=== PATIENT | male | born 1960 | race Hispanic/Latino ===

== ENCOUNTER 2021-04-17 14:05 | Inpatient (IN) | payer OTHER ==
[~2021-04-17] VITALS: Ht 167.6 cm; Wt 84.8 kg
[2021-04-17 15:30] VITALS: BP 156/79
[2021-04-17] MEDS ORDERED: SODIUM BICARB 50MEQ 50ML VIAL 50 ML ONE (16:34)
[2021-04-17] MEDS ORDERED: FENTANYL CITRATE PF 50 MCG/1 ML 2ML VIAL ONE (16:34)
[2021-04-17] MEDS ORDERED: IOHEXOL-350 75 ML VIAL IV ONE (16:34)
[2021-04-17] MEDS ORDERED: BIVALIRUDIN 250 MG/VIAL IV ONE (16:34)
[2021-04-17] MEDS ORDERED: LIDOCAINE HCL 400MG/20ML VIAL ONE (16:34)
[2021-04-17] MEDS ORDERED: MIDAZOLAM HCL 1 MG/ML 2ML VIAL ONE (16:34)
[2021-04-17] MEDS ORDERED: IOHEXOL-350 50ML VIAL IV ONE (16:34)
[2021-04-17] MEDS ORDERED: LABETALOL 20MG SYG IV ONE (17:20)
[2021-04-17] MEDS ORDERED: HYDR25TA PO (17:55)
[2021-04-17] MEDS ORDERED: GLIM4TAB36 PO (17:55)
[2021-04-17] MEDS ORDERED: LOSA25TA41 PO (17:55)
[2021-04-17] MEDS ORDERED: PRAV20TA4 PO (17:55)
[2021-04-17] MEDS ORDERED: AMLO-258 PO (17:55)
[2021-04-17] MEDS ORDERED: AEC81 PO (17:55)
[2021-04-17] MEDS ORDERED: CARV12.511 PO (17:55)
[2021-04-17] MEDS ORDERED: FINA5TAB41 PO (17:55)
[2021-04-17] MEDS ORDERED: METF-446 PO (17:55)
[2021-04-17] MEDS ORDERED: 0.9%NACL 1000ML 1,000 ML IV SCH (18:00)
[2021-04-17 19:00] VITALS: BP 139/73
[2021-04-17 19:30] VITALS: BP 131/56
[2021-04-17 20:00] VITALS: BP 146/72
[2021-04-17] MEDS ORDERED: ACETAMINOPHEN 325 MG TAB PO PRN (20:00)
[2021-04-17] MEDS: ISOSORBIDE MONO 30MG SR TAB PO SCH (20:44)
[2021-04-17] MEDS: ATORVASTATIN 40 MG TABLET PO SCH (20:44)
[2021-04-17 21:00] VITALS: BP 129/67
[2021-04-17 22:00] VITALS: BP 137/70
[2021-04-17] MEDS ORDERED: INSULIN HUMULIN R 100 UNIT/ML 3ML ONE (22:13)
[2021-04-18] VITALS: BP 137/66
[2021-04-18 04:00] VITALS: BP_SYST 129; BP_SYST 133; BP_DIAS 68; BP_DIAS 82
[2021-04-18 05:05] LABS: HEMATOCRIT 26.1 % (42-54); MEAN CORPUSCULAR HEMOGLOBIN 23.2 pg (27.0-33.0); MEAN CORPUSCULAR HGB CONC 31.4 g/dL (32.0-36.0); MEAN CORPUSCULAR VOLUME 73.9 fL (79-99); PLATELET COUNT (AUTO) 584 K/uL (130-400); RED BLOOD CELL COUNT(AUTO) 3.53 MIL/uL (4.50-6.20); RED CELL DISTRIBUTION WIDTH 15.9 % (11.0-15.5); WHITE BLOOD COUNT (AUTO) 13.1 K/uL (4.8-10.8)
[2021-04-18 05:22] LABS: CREATININE 2.2 mg/dL (0.5-1.5); POTASSIUM 3.6 mmol/L (3.5-5.1)
[2021-04-18 05:25] LABS: HEMOGLOBIN A1C 8.7 % (4.0-6.0)
[2021-04-18] MEDS: INSULIN HUMULIN R 100 UNIT/ML 3ML SQ SCH ×4 (06:38→21:00)
[2021-04-18] MEDS ORDERED: INSULIN HUMULIN R 100 UNIT/ML 3ML SQ SCH (07:30)
[2021-04-18 08:00] VITALS: BP 149/67
[2021-04-18] MEDS: ASPIRIN 81MG CHEW TAB PO SCH (08:44)
[2021-04-18] MEDS: CLOPIDOGREL 75MG TAB PO SCH (08:44)
[2021-04-18] MEDS ORDERED: FAMOTIDINE 20MG TAB PO SCH (09:00)
[2021-04-18] MEDS ORDERED: LINAGLIPTIN 5 MG TABLET PO SCH (10:00)
[2021-04-18 10:08] LABS: CRP QUANTITATIVE 59.9 mg/L (0.00-9.0)
[2021-04-18 10:12] LABS: % IRON SATURATION 18.2 % (30-44)
[2021-04-18 12:00] VITALS: BP 155/71
[2021-04-18] MEDS ORDERED: PANTOPRAZOLE 40 MG TAB DR PO SCH ×2 (12:00)
[2021-04-18] MEDS: DOXYCYCLINE HYCLATE 100 MG TABLET PO SCH ×2 (15:34→21:32)
[2021-04-18] MEDS: CEFTRIAXONE 1G VIAL IVP SCH (15:35)
[2021-04-18 16:00] VITALS: BP 149/67
[2021-04-18 20:00] VITALS: BP 164/64
[2021-04-18] MEDS: ATORVASTATIN 40 MG TABLET PO SCH (21:32)
[2021-04-18] MEDS: ISOSORBIDE MONO 30MG SR TAB PO SCH (21:33)
[2021-04-18] MEDS: INSULIN GLARGINE 100 UNITS/ML 10 ML VIAL SQ SCH (21:34)
[2021-04-19] VITALS (7 sets, daily range): BP systolic 153–188; BP diastolic 67–88
[2021-04-19 06:00] LABS: BASOPHILS % (AUTO) 0.5 % (0.0-5.0); EOSINOPHILS % (AUTO) 0.5 % (0.0-8.0); LYMPHOCYTES % (AUTO) 25.7 % (21.0-51.0); MEAN CORPUSCULAR HEMOGLOBIN 22.6 pg (27.0-33.0); MEAN CORPUSCULAR HGB CONC 30.4 g/dL (32.0-36.0); MEAN CORPUSCULAR VOLUME 74.5 fL (79-99); NEUTROPHILS % (AUTO) 59.9 % (40.0-77.0); PLATELET COUNT (AUTO) 566 K/uL (130-400); RED BLOOD CELL COUNT(AUTO) 3.49 MIL/uL (4.50-6.20); RED CELL DISTRIBUTION WIDTH 16.1 % (11.0-15.5); WHITE BLOOD COUNT (AUTO) 10.7 K/uL (4.8-10.8)
[2021-04-19 06:23] LABS: ALBUMIN 1.6 g/dL (3.5-5.0); BILIRUBIN,TOTAL 0.2 mg/dL (0.2-1.0); CREATININE 2.3 mg/dL (0.5-1.5); MAGNESIUM 1.7 mg/dL (1.80-2.40); POTASSIUM 3.6 mmol/L (3.5-5.1); TOTAL PROTEIN, SERUM 6.6 g/dL (6.0-8.3)
[2021-04-19] MEDS: INSULIN HUMULIN R 100 UNIT/ML 3ML SQ SCH ×8 (06:49→20:29)
[2021-04-19] MEDS ORDERED: FINASTERIDE 5 MG TABLET PO SCH (09:00)
[2021-04-19] MEDS ORDERED: PANTOPRAZOLE 40 MG/VIAL IVP SCH ×2 (09:00→11:00)
[2021-04-19] MEDS: ASPIRIN 81MG CHEW TAB PO SCH (09:43)
[2021-04-19] MEDS: CLOPIDOGREL 75MG TAB PO SCH (09:43)
[2021-04-19] MEDS: DOXYCYCLINE HYCLATE 100 MG TABLET PO SCH ×2 (09:44→20:25)
[2021-04-19 11:11] LABS: HEMATOCRIT 27.6 % (42-54)
[2021-04-19] MEDS: PANTOPRAZOLE 40MG INJ 80 MG in 0.9%NACL 100ML 100 ML IVP SCH ×2 (13:12→21:56)
[2021-04-19] MEDS: CEFTRIAXONE 1G VIAL IVP SCH (13:12)
[2021-04-19] MEDS: AMLODIPINE 5 MG TAB PO SCH (17:02)
[2021-04-19] MEDS ORDERED: HYDRALAZINE 20MG/ML VIAL IV PRN (19:00)
[2021-04-19 19:39] LABS: APPEARANCE,URINE Clear (CLEAR); BILIRUBIN,URINE Negative (NEGATIVE); COLOR,URINE Yellow (YELLOW); GLUCOSE, URINE (UA) 250 mg/dL (NEGATIVE); KETONES,URINE Negative (NEGATIVE); LEUKOCYTE ESTERASE ,URINE Negative (NEGATIVE); NITRATE,URINE Negative (NEGATIVE); OCCULT BLOOD,URINE Small (NEGATIVE); PROTEIN,URINE 300 mg/dL (NEGATIVE); UROBILINOGEN,URINE 0.2 mg/dL (0.2-1.0)
[2021-04-19 19:53] LABS: BACTERIA,URINE Rare /HPF (None Seen); SQUAMOUS EPITHELIAL CELL,UR Rare /HPF (0-2); WBC,URINE 0-1 /HPF (0-1)
[2021-04-19] MEDS ORDERED: AMLODIPINE 5 MG TAB PO ONE (20:00)
[2021-04-19] MEDS: CARVEDILOL 12.5 MG TABLET PO SCH (20:25)
[2021-04-19] MEDS: ISOSORBIDE MONO 30MG SR TAB PO SCH (20:26)
[2021-04-19] MEDS: ATORVASTATIN 40 MG TABLET PO SCH (20:27)
[2021-04-19] MEDS: INSULIN GLARGINE 100 UNITS/ML 10 ML VIAL SQ SCH (20:28)
[2021-04-19] MEDS ORDERED: PANTOPRAZOLE 40 MG/VIAL ONE (21:52)
[2021-04-19] MEDS ORDERED: 0.9%NACL 100ML 100 ML ONE (21:52)
[2021-04-20 04:44] VITALS: BP 134/65
[2021-04-20 06:05] LABS: BASOPHILS % (AUTO) 1.1 % (0.0-5.0); EOSINOPHILS % (AUTO) 1.3 % (0.0-8.0); HEMATOCRIT 27.2 % (42-54); LYMPHOCYTES % (AUTO) 24.5 % (21.0-51.0); MEAN CORPUSCULAR HEMOGLOBIN 23.1 pg (27.0-33.0); MEAN CORPUSCULAR HGB CONC 30.9 g/dL (32.0-36.0); MEAN CORPUSCULAR VOLUME 74.9 fL (79-99); MONOCYTES % (AUTO) 13.5 % (3.0-13.0); NEUTROPHILS % (AUTO) 59.3 % (40.0-77.0); PLATELET COUNT (AUTO) 575 K/uL (130-400); RED BLOOD CELL COUNT(AUTO) 3.63 MIL/uL (4.50-6.20); RED CELL DISTRIBUTION WIDTH 16.2 % (11.0-15.5); WHITE BLOOD COUNT (AUTO) 9.4 K/uL (4.8-10.8)
[2021-04-20 06:16] LABS: CREATININE 2.2 mg/dL (0.5-1.5); MAGNESIUM 1.6 mg/dL (1.80-2.40); POTASSIUM 3.4 mmol/L (3.5-5.1)
[2021-04-20] MEDS: INSULIN HUMULIN R 100 UNIT/ML 3ML SQ SCH ×5 (06:27→21:01)
[2021-04-20] MEDS: PANTOPRAZOLE 40MG INJ 80 MG in 0.9%NACL 100ML 100 ML IVP SCH ×2 (07:00→17:31)
[2021-04-20 07:55] VITALS: BP 165/71
[2021-04-20] MEDS ORDERED: MAGNESIUM 2GM PREMIX 50ML 50 ML IV ONE (08:55)
[2021-04-20] MEDS: DOXYCYCLINE HYCLATE 100 MG TABLET PO SCH ×2 (09:00→21:00)
[2021-04-20] MEDS: AMLODIPINE 5 MG TAB PO SCH ×2 (09:33→20:59)
[2021-04-20] MEDS: CARVEDILOL 12.5 MG TABLET PO SCH ×2 (09:33→21:00)
[2021-04-20 11:10] VITALS: BP 163/73
[2021-04-20] MEDS ORDERED: COMPOUND IV MISC 1 EACH IVSOLN MISC PRN (13:00)
[2021-04-20] MEDS ORDERED: KCL 20 MEQ ERTAB PO ONE ×2 (14:10→17:09)
[2021-04-20 15:40] VITALS: BP 191/70
[2021-04-20] MEDS ORDERED: CLON0.1T2 PO (17:12)
[2021-04-20] MEDS ORDERED: CLONIDINE HCL 0.1 MG TABLET ONE (17:17)
[2021-04-20] MEDS: CEFTRIAXONE 1G VIAL IVP SCH (17:28)
[2021-04-20] MEDS ORDERED: CLONIDINE HCL 0.1 MG TABLET PO PRN (17:30)
[2021-04-20 19:49] VITALS: BP 148/73
[2021-04-20] MEDS: FINASTERIDE 5 MG TABLET PO SCH (20:59)
[2021-04-20] MEDS: ATORVASTATIN 40 MG TABLET PO SCH (20:59)
[2021-04-20] MEDS: ISOSORBIDE MONO 30MG SR TAB PO SCH (20:59)
[2021-04-20] MEDS: INSULIN GLARGINE 100 UNITS/ML 10 ML VIAL SQ SCH (21:01)
[2021-04-20 23:51] VITALS: BP 144/65
[2021-04-21] VITALS (17 sets, daily range): BP systolic 120–147; BP diastolic 40–73
[2021-04-21 05:11] LABS: BASOPHILS % (AUTO) 0.8 % (0.0-5.0); EOSINOPHILS % (AUTO) 2.4 % (0.0-8.0); HEMATOCRIT 25.9 % (42-54); LYMPHOCYTES % (AUTO) 27.4 % (21.0-51.0); MEAN CORPUSCULAR HEMOGLOBIN 22.8 pg (27.0-33.0); MEAN CORPUSCULAR HGB CONC 30.5 g/dL (32.0-36.0); MEAN CORPUSCULAR VOLUME 74.9 fL (79-99); NEUTROPHILS % (AUTO) 57.1 % (40.0-77.0); PLATELET COUNT (AUTO) 500 K/uL (130-400); RED BLOOD CELL COUNT(AUTO) 3.46 MIL/uL (4.50-6.20); RED CELL DISTRIBUTION WIDTH 16.3 % (11.0-15.5)
[2021-04-21 05:24] LABS: ALBUMIN 1.6 g/dL (3.5-5.0); BILIRUBIN,TOTAL 0.3 mg/dL (0.2-1.0); CREATININE 2.1 mg/dL (0.5-1.5); POTASSIUM 3.9 mmol/L (3.5-5.1); TOTAL PROTEIN, SERUM 6.7 g/dL (6.0-8.3)
[2021-04-21] MEDS: PANTOPRAZOLE 40MG INJ 80 MG in 0.9%NACL 100ML 100 ML IVP SCH ×4 (06:17→22:49)
[2021-04-21] MEDS: INSULIN HUMULIN R 100 UNIT/ML 3ML SQ SCH ×7 (06:18→20:53)
[2021-04-21 07:56] LABS: INR 1.04 (0.85-1.15); PROTHROMBIN TIME 11.3 SEC (9.6-11.6)
[2021-04-21 07:57] LABS: PARTIAL THROMBOPLASTIN TIME 33.7 SEC (26.3-35.5)
[2021-04-21] MEDS ORDERED: FENTANYL CITRATE PF 50 MCG/1 ML 2ML VIAL ONE (10:21)
[2021-04-21] MEDS: CARVEDILOL 12.5 MG TABLET PO SCH ×2 (10:22→20:55)
[2021-04-21] MEDS: AMLODIPINE 5 MG TAB PO SCH ×2 (10:22→20:27)
[2021-04-21] MEDS ORDERED: MIDAZOLAM HCL 1 MG/ML 2ML VIAL ONE (10:22)
[2021-04-21] MEDS: DOXYCYCLINE HYCLATE 100 MG TABLET PO SCH ×2 (10:47→20:27)
[2021-04-21] MEDS: CEFTRIAXONE 1G VIAL IVP SCH (12:00)
[2021-04-21] MEDS ORDERED: PROPOFOL 10 MG/ML 20ML VIAL IV ONE (13:43)
[2021-04-21] MEDS ORDERED: LIDOCAINE HCL MPF 1% 5ML VIAL ONE (14:56)
[2021-04-21] MEDS: ATORVASTATIN 40 MG TABLET PO SCH (20:27)
[2021-04-21] MEDS: FINASTERIDE 5 MG TABLET PO SCH (20:27)
[2021-04-21] MEDS: ISOSORBIDE MONO 30MG SR TAB PO SCH (20:28)
[2021-04-21] MEDS: INSULIN GLARGINE 100 UNITS/ML 10 ML VIAL SQ SCH (20:54)
[2021-04-22 04:17] VITALS: BP 145/68
[2021-04-22] MEDS: INSULIN HUMULIN R 100 UNIT/ML 3ML SQ SCH ×7 (06:14→21:14)
[2021-04-22 07:31] LABS: BASOPHILS % (AUTO) 0.8 % (0.0-5.0); EOSINOPHILS % (AUTO) 2.1 % (0.0-8.0); HEMATOCRIT 26.3 % (42-54); LYMPHOCYTES % (AUTO) 27.2 % (21.0-51.0); MEAN CORPUSCULAR HEMOGLOBIN 22.6 pg (27.0-33.0); MEAN CORPUSCULAR HGB CONC 30.4 g/dL (32.0-36.0); MEAN CORPUSCULAR VOLUME 74.3 fL (79-99); MONOCYTES % (AUTO) 12.9 % (3.0-13.0); NEUTROPHILS % (AUTO) 56.8 % (40.0-77.0); PLATELET COUNT (AUTO) 532 K/uL (130-400); RED BLOOD CELL COUNT(AUTO) 3.54 MIL/uL (4.50-6.20); RED CELL DISTRIBUTION WIDTH 16.2 % (11.0-15.5); WHITE BLOOD COUNT (AUTO) 8.4 K/uL (4.8-10.8)
[2021-04-22 07:49] LABS: ALBUMIN 1.6 g/dL (3.5-5.0); BILIRUBIN,TOTAL 0.3 mg/dL (0.2-1.0); POTASSIUM 3.6 mmol/L (3.5-5.1); TOTAL PROTEIN, SERUM 6.6 g/dL (6.0-8.3)
[2021-04-22 08:01] VITALS: BP 134/85
[2021-04-22] MEDS: PANTOPRAZOLE 40MG INJ 80 MG in 0.9%NACL 100ML 100 ML IVP SCH (09:00)
[2021-04-22] MEDS: AMLODIPINE 5 MG TAB PO SCH ×2 (10:53→20:41)
[2021-04-22] MEDS: CARVEDILOL 12.5 MG TABLET PO SCH ×2 (10:54→20:42)
[2021-04-22] MEDS: DOXYCYCLINE HYCLATE 100 MG TABLET PO SCH ×2 (10:54→20:41)
[2021-04-22] MEDS: IRON SUCROSE COMPLEX 100 MG in 0.9%NACL 50ML 50 ML IV SCH (10:55)
[2021-04-22 12:41] VITALS: BP 168/70
[2021-04-22] MEDS: CEFTRIAXONE 1G VIAL IVP SCH (13:32)
[2021-04-22 18:20] VITALS: BP 161/71
[2021-04-22 20:00] VITALS: BP 176/76
[2021-04-22] MEDS: ISOSORBIDE MONO 30MG SR TAB PO SCH (20:41)
[2021-04-22] MEDS: PANTOPRAZOLE 40 MG TAB DR PO SCH (20:41)
[2021-04-22] MEDS: FINASTERIDE 5 MG TABLET PO SCH (20:41)
[2021-04-22] MEDS: ATORVASTATIN 40 MG TABLET PO SCH (20:41)
[2021-04-22] MEDS: INSULIN GLARGINE 100 UNITS/ML 10 ML VIAL SQ SCH (21:16)
[2021-04-23] VITALS: BP 138/56
[2021-04-23 04:00] VITALS: BP 144/65
[2021-04-23] MEDS: INSULIN HUMULIN R 100 UNIT/ML 3ML SQ SCH ×3 (06:14→12:31)
[2021-04-23 08:06] VITALS: BP 155/63
[2021-04-23 08:55] LABS: EOSINOPHILS % (AUTO) 2.6 % (0.0-8.0); HEMATOCRIT 24.8 % (42-54); LYMPHOCYTES % (AUTO) 24.8 % (21.0-51.0); MEAN CORPUSCULAR HEMOGLOBIN 23.3 pg (27.0-33.0); MEAN CORPUSCULAR VOLUME 75.2 fL (79-99); MONOCYTES % (AUTO) 11.5 % (3.0-13.0); NEUTROPHILS % (AUTO) 59.9 % (40.0-77.0); PLATELET COUNT (AUTO) 526 K/uL (130-400); RED CELL DISTRIBUTION WIDTH 16.6 % (11.0-15.5); WHITE BLOOD COUNT (AUTO) 8.2 K/uL (4.8-10.8)
[2021-04-23 09:06] LABS: CREATININE 1.9 mg/dL (0.5-1.5); POTASSIUM 3.4 mmol/L (3.5-5.1)
[2021-04-23] MEDS: CARVEDILOL 12.5 MG TABLET PO SCH (09:28)
[2021-04-23] MEDS: IRON SUCROSE COMPLEX 100 MG in 0.9%NACL 50ML 50 ML IV SCH (09:29)
[2021-04-23] MEDS: AMLODIPINE 5 MG TAB PO SCH (09:29)
[2021-04-23] MEDS: PANTOPRAZOLE 40 MG TAB DR PO SCH (09:29)
[2021-04-23] MEDS: DOXYCYCLINE HYCLATE 100 MG TABLET PO SCH (09:29)
[2021-04-23] MEDS ORDERED: KCL 20 MEQ ERTAB PO SCH (10:30)
[2021-04-23 11:17] VITALS: BP 153/65
[2021-04-23] MEDS ORDERED: INSULIN HUMULIN R 100 UNIT/ML 3ML SQ SCH (11:30)
[2021-04-23] MEDS ORDERED: GLIM4TAB36 PO (11:34)
[2021-04-23] MEDS ORDERED: Isosorbide Mono 30MG Sr Tab PO (11:34)
[2021-04-23] MEDS ORDERED: INSU3INS3 SQ (11:34)
[2021-04-23] MEDS ORDERED: CLON0.1T2 PO (11:34)
[2021-04-23] MEDS ORDERED: AMLO5TAB4 PO (11:34)
[2021-04-23] MEDS ORDERED: DOXY100T2 PO (11:34)
[2021-04-23] MEDS ORDERED: PANT40TA PO (11:34)
[2021-04-23] MEDS ORDERED: ATOR40TA69 PO (11:34)
[2021-04-23] MEDS ORDERED: HYDR-3420 PO (11:34)
[2021-04-23] MEDS ORDERED: CLOP75TA14 PO (11:34)
[2021-04-23] MEDS: CEFTRIAXONE 1G VIAL IVP SCH (12:19)
[2021-04-23] MEDS ORDERED: HYDRALAZINE HCL 10 MG TABLET PO SCH (14:00)
[2021-04-24] MEDS ORDERED: CLOPIDOGREL 75MG TAB PO SCH (09:00)
[2021-04-24] MEDS ORDERED: ASPIRIN 81MG CHEW TAB PO SCH (09:00)
== END 2021-04-23 18:45 | disposition home or self-care (01) | DRG 280 ==
LOC: EDH 14:05 → OBSVTOIN 19:00 → 4DH 19:00
PROVIDERS: ADMIT Internal Medicine; ATTEND Internal Medicine
PROC: 4A023N7 Measurement of Cardiac Sampling and Pressure, Left Heart, Percutaneous Approach (ICD-10-PCS; principal; 2021-04-17)
PROC: B2111ZZ Fluoroscopy of Multiple Coronary Arteries using Low Osmolar Contrast (ICD-10-PCS; 2021-04-17)
PROC: 0TB13ZX Excision of Left Kidney, Percutaneous Approach, Diagnostic (ICD-10-PCS; 2021-04-21)
PROC: 0DB68ZX Excision of Stomach, Via Natural or Artificial Opening Endoscopic, Diagnostic (ICD-10-PCS; 2021-04-21)
DX: I21.4 Non-ST elevation (NSTEMI) myocardial infarction (principal); I50.31 Acute diastolic (congestive) heart failure; J18.9 Pneumonia, unspecified organism; N17.9 Acute kidney failure, unspecified; I13.0 Hypertensive heart and chronic kidney disease with heart failure and stage 1 through stage 4 chronic kidney disease, or unspecified chronic kidney disease; E87.1 Hypo-osmolality and hyponatremia; K57.30 Diverticulosis of large intestine without perforation or abscess without bleeding; D35.01 Benign neoplasm of right adrenal gland; I25.110 Atherosclerotic heart disease of native coronary artery with unstable angina pectoris; N18.9 Chronic kidney disease, unspecified; E11.22 Type 2 diabetes mellitus with diabetic chronic kidney disease; E11.65 Type 2 diabetes mellitus with hyperglycemia; E78.5 Hyperlipidemia, unspecified; F17.210 Nicotine dependence, cigarettes, uncomplicated; K29.70 Gastritis, unspecified, without bleeding; D64.9 Anemia, unspecified; N28.89 Other specified disorders of kidney and ureter; N40.0 Benign prostatic hyperplasia without lower urinary tract symptoms; D75.838 Other thrombocytosis; E87.6 Hypokalemia; N28.1 Cyst of kidney, acquired; I25.2 Old myocardial infarction; Z79.84 Long term (current) use of oral hypoglycemic drugs; Z79.4 Long term (current) use of insulin; Z79.899 Other long term (current) drug therapy
CPT/HCPCS: 36415; 43239; 50200; 71045; 71250; 74176; 76770; 76942; 80048; 80053; 80061; 81001; 82270; 82607; 82728; 82746; 82948; 83036; 83540; 83550; 83735; 83880; 84145; 85014; 85018; 85025; 85027; 85610; 85651; 85730; 86140; 86738; 86850; 86900; 86901; 87449; 93306; 93356; 93458; 99152; 99153; 99156; 99157; A4606; C1760; C1894; C9113; G0378; J0583; J0696; J1644; J1756; J1815; J2250; J2704; J3010; J3475; J3490; J7030; Q9967